=== PATIENT | female | born 1985 | race Asian ===

== ENCOUNTER 2016-12-19 08:28 | Outpatient (CLI) | payer OTHER, MEDICAID | END 2016-12-19 08:29 | disposition home or self-care (01) | DX: Z13.9 Encounter for screening, unspecified (principal); Z86.2 Personal history of diseases of the blood and blood-forming organs and certain disorders involving the immune mechanism ==

== ENCOUNTER 2017-04-02 20:41 | Emergency (ER) | payer OTHER, MEDICAID ==
--- NOTE | 2017-04-02 20:52 | ED Physician Documentation ---
PD HPI URI - Stated complaint Stated Complaint: FVR/LUMP IN THROAT - Chief complaint Chief Complaint: Heent - History obtained from History obtained from: Patient - History of Present Illness Timing - onset: How many days ago (4) Timing duration: Days (4) Timing details: Gradual onset, Still present Associated symptoms: Fever, Sore throat (has had right buccal mucosa focal sore for a week, and is tapering size. She is having 4 days of malaise, fevers, and left side neck swelling. No trouble swallowing nor breathing.). No: Sinus pain , Dry cough Contributing factors: No: Sick contact, Travel, Immunocompromised Similar symptoms before: Has not had sx before Recently seen: Clinic, Not recently seen (in clinic yesterday and was scheduled for U/S of the neck, with the test being now scheduled for next week. Likely was to eval for abscess.) Review of Systems Constitutional: denies: Fever, Chills Ears: denies: Ear pain Nose: denies: Rhinorrhea / runny nose, Congestion Throat: reports: Oral lesions / sores (right buccal mucusa focal sore for a week.), Sore throat (for 1-2 days) GI: denies: Nausea, Vomiting, Diarrhea : denies: Dysuria, Frequency, Discharge Skin: denies: Rash, Lesions PD PAST MEDICAL HISTORY - Past Medical History Past Medical History: Yes Cardiovascular: None Respiratory: None Endocrine/Autoimmune: None GI: Hemorrhoids : None HEENT: None Psych: None Musculoskeletal: None Derm: None - Past Surgical History Past Surgical History: Yes /[employer]: Tubal ligation - Present Medications Home Medications: Ambulatory Orders Medication Instructions Recorded Confirmed Cephalexin [Keflex] 500 mg PO QID #24 capsule 04/02/17 Dexamethasone [Decadron] 4 mg PO DAILY #5 tablet 04/02/17 - Allergies Allergies/Adverse Reactions: Allergies Allergy/AdvReac Type Severity Reaction Status Date / Time No Known Drug Allergies Allergy Verified 04/02/17 20:48 - Social History Does the pt smoke?: No Smoking Status: Never smoker Does the pt drink ETOH?: No Does the pt have substance abuse?: No - Immunizations Immunizations are current?: Yes - POLST Patient has POLST: No PD ED PE NORMAL - Vitals Vital signs reviewed: Yes - General General: Alert and oriented X 3, Well developed/nourished - HEENT HEENT: Atraumatic, Ears normal, Moist mucous membranes. No: Pharynx benign ( teeth and gums are not tender without swelling. right buccal mucosa laterally with rounded 1/2 cm superficial ulcerative lesion c/w canker sore. ) - Neck Neck: Supple, no meningeal sign, Other (neck with left sided anterior small adenopathy from below ear down to calvicle in scalene line. Bedside U/S showing lymph nodes without apparent abscesses. ) - Cardiac Cardiac: RRR (tachycardic), No murmur - Respiratory Respiratory: Clear bilaterally - Abdomen Abdomen: Soft, Non tender - Back Back: No CVA TTP - Derm Derm: Normal color, Warm and dry, No rash - Extremities Extremities: No deformity, No tenderness to palpate, Normal ROM s pain - Neuro Neuro: Alert and oriented X 3, No motor deficit, Normal speech Results - Vitals Vitals: Vital Signs - 24 hr 04/02/17 04/02/17 20:46 22:00 Temperature 38.1 C H Heart Rate 114 H 99 Respiratory 16 16 Rate Blood Pressure 124/74 110/68 O2 Saturation 100 100 Oxygen O2 Source Room air - Labs Labs: Laboratory Tests 04/02/17 21:19 Group A Strep Rapid Negative Departure - Departure Disposition: 01 Home, Self Care Clinical Impression: Acute cervical adenitis Condition: Stable Record reviewed to determine appropriate education?: Yes Instructions: ED Cervical Adenitis Abx Tx Follow-Up: Pat Bishop, [facility] [Primary Care Provider] - Prescriptions: Dexamethasone [Decadron] 4 mg PO DAILY #5 tablet Cephalexin [Keflex] 500 mg PO QID #24 capsule Comments: Drink lots of fluids. Tylenol or Ibuprofen for fevers. I think this is more bacterial infection and so treat it with Keflex as directed. For the swelling of the lymph nodes, can also use Decadron steroid low dose daily for a few days. Recheck if not improved over the next few days. Discharge Date/Time: 04/02/17 22:04
[2017-04-02] MEDS ORDERED: DEXAMETHASONE 10 MG/ML VIAL PO STA (21:20)
[2017-04-02] MEDS ORDERED: HYDROcod/ACETAM 5/325 MG TABLET PO STA (21:20)
[2017-04-02] MEDS ORDERED: CEPHALEXIN 250 MG CAPSULE PO STA (21:20)
[2017-04-02] MEDS ORDERED: ACETAMINOPHEN 325 MG TABLET PO STA (21:20)
[2017-04-02] MEDS ORDERED: CHERRY SYRUP 10 ML UDC PO ONE (21:27)
[2017-04-02] MEDS ORDERED: CEPHALEXIN 250 MG CAPSULE PO ONE (21:27)
[2017-04-02] MEDS ORDERED: HYDROcod/ACETAM 5/325 MG TABLET ONE (21:27)
[2017-04-02] MEDS ORDERED: DEXAMETHASONE 10 MG/ML VIAL ONE (21:28)
[2017-04-02] MEDS ORDERED: ACETAMINOPHEN 325 MG TABLET PO ONE (21:28)
[2017-04-02 21:48] LABS: RAPID STREP SCREEN REAGENT QC YELLOW (YELLOW)
[2017-04-02 22:04] VITALS: BP 110/68
== END 2017-04-02 22:04 | disposition home or self-care (01) ==
LOC: ED 20:41
DX: L04.0 Acute lymphadenitis of face, head and neck (principal)
CPT/HCPCS: 87070; 87430; 99283; A9270

== ENCOUNTER 2018-02-18 08:00 | Outpatient (CLI) | payer OTHER, MEDICAID ==
[2018-02-18 13:07] LABS: BASOPHILS % (AUTO) 0.6 %; EOSINOPHILS # (AUTO) 0.1 10^3/uL (0.0-0.7); EOSINOPHILS % (AUTO) 2.8 %; HGB - HEMOGLOBIN 11.6 g/dL (12.0-16.0); LYMPHOCYTES # (AUTO) 1.3 10^3/uL (1.5-3.5); LYMPHOCYTES % (AUTO) 29.7 %; MEAN CORPUSCULAR HGB CONC 32.6 g/dL (32.0-36.0); MEAN CORPUSCULAR VOLUME 79.7 fL (81.0-99.0); MEAN PLATELET VOLUME 9.9 fL (7.9-10.8); MONOCYTES # (AUTO) 0.5 10^3/uL (0.0-1.0); MONOCYTES % (AUTO) 12.3 %; NEUTROPHILS # (AUTO) 2.4 10^3/uL (1.5-6.6); NEUTROPHILS % (AUTO) 54.6 %; PLT - PLATELET COUNT 202 10^3/uL (130-450); RED BLOOD COUNT 4.46 10^6/uL (4.20-5.40); WHITE BLOOD COUNT 4.4 x10^3/uL (4.8-10.8)
[2018-02-18 13:22] LABS: ALBUMIN 4.5 g/dL (3.2-5.5); ALBUMIN/GLOBULIN RATIO 1.2 (1.0-2.2); BILIRUBIN,TOTAL 0.5 mg/dL (0.2-1.0); CALCIUM 8.9 mg/dL (8.5-10.3); CREATININE 0.6 mg/dL (0.4-1.0); TOTAL PROTEIN 8.2 g/dL (6.7-8.2)
[2018-02-18 13:54] LABS: THYROID STIMULATING HORMONE 2.34 uIU/mL (0.34-5.60)
[2018-02-18 14:01] LABS: FERRITIN 6.4 ng/mL (11.0-306.8)
[2018-02-18 14:05] LABS: FOLATE 15.06 ng/mL (5.90 - >24.8)
== END 2018-02-18 08:01 | disposition home or self-care (01) ==
LOC: LAB.N 08:00
PROVIDERS: ATTEND Family Medicine
DX: R53.83 Other fatigue (principal); D64.9 Anemia, unspecified; R10.84 Generalized abdominal pain
CPT/HCPCS: 36415; 80053; 82607; 82728; 82746; 83540; 83690; 84443; 84466; 85025; 85044

== ENCOUNTER 2018-09-01 07:58 | Outpatient (CLI) | payer OTHER, MEDICAID ==
[2018-09-01 13:42] LABS: BASOPHILS % (AUTO) 0.5 %; EOSINOPHILS # (AUTO) 0.2 10^3/uL (0.0-0.7); LYMPHOCYTES # (AUTO) 2.2 10^3/uL (1.5-3.5); LYMPHOCYTES % (AUTO) 34.6 %; MEAN CORPUSCULAR HEMOGLOBIN 24.4 pg (27.0-31.0); MEAN CORPUSCULAR HGB CONC 32.4 g/dL (32.0-36.0); MEAN CORPUSCULAR VOLUME 75.3 fL (81.0-99.0); MEAN PLATELET VOLUME 9.4 fL (7.9-10.8); MONOCYTES # (AUTO) 0.4 10^3/uL (0.0-1.0); MONOCYTES % (AUTO) 7.2 %; NEUTROPHILS # (AUTO) 3.4 10^3/uL (1.5-6.6); NEUTROPHILS % (AUTO) 54.7 %; PLT - PLATELET COUNT 244 10^3/uL (130-450); RED CELL DISTRIBUTION WIDTH 15.4 % (12.0-15.0); WHITE BLOOD COUNT 6.2 x10^3/uL (4.8-10.8)
[2018-09-01 14:21] LABS: % IRON SATURATION 9 % (20-50); IRON 39 ug/dL (28-170); TOTAL IRON BINDING CAPACITY 420 ug/dL (250-450); TRANSFERRIN 300 mg/dL (192-382)
== END 2018-09-01 07:59 | disposition home or self-care (01) ==
LOC: LAB.F 07:58
PROVIDERS: ATTEND Family Medicine
DX: D50.9 Iron deficiency anemia, unspecified (principal)
CPT/HCPCS: 36415; 82728; 83540; 84466; 85025

== ENCOUNTER 2020-09-07 09:10 | Outpatient (CLI) | payer BC ==
[2020-09-07 13:49] LABS: BASOPHILS # (AUTO) 0.1 10^3/uL (0.0-0.1); BASOPHILS % (AUTO) 0.9 %; EOSINOPHILS # (AUTO) 0.2 10^3/uL (0.0-0.7); EOSINOPHILS % (AUTO) 3.8 %; HGB - HEMOGLOBIN 9.5 g/dL (12.0-16.0); LYMPHOCYTES # (AUTO) 1.9 10^3/uL (1.5-3.5); LYMPHOCYTES % (AUTO) 32.8 %; MEAN CORPUSCULAR HEMOGLOBIN 20.8 pg (27.0-31.0); MEAN CORPUSCULAR HGB CONC 29.2 g/dL (32.0-36.0); MEAN CORPUSCULAR VOLUME 71.3 fL (81.0-99.0); MEAN PLATELET VOLUME 11.6 fL (7.9-10.8); MONOCYTES # (AUTO) 0.5 10^3/uL (0.0-1.0); MONOCYTES % (AUTO) 7.9 %; NEUTROPHILS # (AUTO) 3.2 10^3/uL (1.5-6.6); NEUTROPHILS % (AUTO) 54.4 %; PLT - PLATELET COUNT 268 10^3/uL (130-450); RED BLOOD COUNT 4.56 10^6/uL (4.20-5.40); RED CELL DISTRIBUTION WIDTH 16.4 % (12.0-15.0); WHITE BLOOD COUNT 5.8 x10^3/uL (4.8-10.8)
[2020-09-07 14:06] LABS: ALBUMIN 4.4 g/dL (3.2-5.5); ALBUMIN/GLOBULIN RATIO 1.2 (1.0-2.2); ALKALINE PHOSPHATASE 41 IU/L (42-121); ALT ALANINE AMINOTRANSFERASE 18 IU/L (10-60); AST ASPARTATE AMINOTRANSFERASE 19 IU/L (10-42); BILIRUBIN,TOTAL 0.5 mg/dL (0.2-1.0); BUN - BLOOD UREA NITROGEN 10 mg/dL (6-20); CALCIUM 8.9 mg/dL (8.5-10.3); CARBON DIOXIDE - CO2 25 mmol/L (21-32); CHLORIDE 104 mmol/L (101-111); CHOL/HDL RATIO 2.5 (<4.4); CHOLESTEROL 109 mg/dL; CREATININE 0.7 mg/dL (0.4-1.0); GLUCOSE 104 mg/dL (70-100); HDL CHOLESTEROL 44 mg/dL; LDL CHOLESTEROL,CALCULATED 51 mg/dL; LDL/HDL RATIO 1.2 (<4.4); SODIUM 136 mmol/L (135-145); TOTAL PROTEIN 8.2 g/dL (6.7-8.2); VLDL CHOLESTEROL 14 mg/dL
== END 2020-09-07 09:11 | disposition home or self-care (01) ==
LOC: LAB.S 09:10
PROVIDERS: ATTEND Nurse Practitioner Family
DX: Z13.9 Encounter for screening, unspecified (principal)
CPT/HCPCS: 36415; 80053; 80061; 83721; 84443; 85025

== ENCOUNTER 2021-12-18 07:46 | Outpatient (CLI) | payer BC ==
[2021-12-18 14:31] LABS: BILIRUBIN,URINE NEGATIVE (NEGATIVE); GLUCOSE, URINE (UA) NEGATIVE (NEGATIVE); KETONES,URINE (UA) NEGATIVE (NEGATIVE); LEUKOCYTE ESTERASE, URINE NEGATIVE (NEGATIVE); NITRITE,URINE NEGATIVE (NEGATIVE); OCCULT BLOOD,URINE NEGATIVE (NEGATIVE); PROTEIN,URINE NEGATIVE (NEGATIVE); UROBILINOGEN,URINE 0.2 (NORMAL) E.U./dL (NORMAL)
[2021-12-18 14:34] LABS: BASOPHILS # (AUTO) 0.1 10^3/uL (0.0-0.1); BASOPHILS % (AUTO) 1.2 %; EOSINOPHILS # (AUTO) 0.2 10^3/uL (0.0-0.7); EOSINOPHILS % (AUTO) 3.8 %; HGB - HEMOGLOBIN 8.9 g/dL (12.0-16.0); LYMPHOCYTES # (AUTO) 1.9 10^3/uL (1.5-3.5); LYMPHOCYTES % (AUTO) 31.8 %; MEAN CORPUSCULAR HEMOGLOBIN 19.2 pg (27.0-31.0); MEAN CORPUSCULAR HGB CONC 28.7 g/dL (32.0-36.0); MONOCYTES # (AUTO) 0.4 10^3/uL (0.0-1.0); MONOCYTES % (AUTO) 7.3 %; NEUTROPHILS # (AUTO) 3.4 10^3/uL (1.5-6.6); NEUTROPHILS % (AUTO) 55.6 %; PLT - PLATELET COUNT 296 10^3/uL (130-450); RED BLOOD COUNT 4.63 10^6/uL (4.20-5.40); RED CELL DISTRIBUTION WIDTH 16.8 % (12.0-15.0)
[2021-12-18 14:35] LABS: CLARITY,URINE CLOUDY (CLEAR)
[2021-12-18 14:36] LABS: % IRON SATURATION 4 % (20-50); ALBUMIN 4.5 g/dL (3.2-5.5); ALBUMIN/GLOBULIN RATIO 1.1 (1.0-2.2); ALKALINE PHOSPHATASE 44 IU/L (42-121); ALT ALANINE AMINOTRANSFERASE 20 IU/L (10-60); AST ASPARTATE AMINOTRANSFERASE 20 IU/L (10-42); BILIRUBIN,TOTAL 0.2 mg/dL (0.2-1.0); BUN - BLOOD UREA NITROGEN 12 mg/dL (6-20); CALCIUM 9.2 mg/dL (8.5-10.3); CARBON DIOXIDE - CO2 25 mmol/L (21-32); CHLORIDE 102 mmol/L (101-111); CHOL/HDL RATIO 2.9 (<4.4); CHOLESTEROL 123 mg/dL; CREATININE 0.6 mg/dL (0.4-1.0); GFR - MDRD 113 (>89); GLUCOSE 109 mg/dL (70-100); HDL CHOLESTEROL 43 mg/dL; IRON 18 ug/dL (28-170); LDL CHOLESTEROL,CALCULATED 63 mg/dL; LDL/HDL RATIO 1.5 (<4.4); POTASSIUM 3.7 mmol/L (3.5-5.0); SODIUM 137 mmol/L (135-145); TOTAL IRON BINDING CAPACITY 500 ug/dL (250-450); TOTAL PROTEIN 8.5 g/dL (6.7-8.2); TRANSFERRIN 357 mg/dL (192-382); TRIGLYCERIDES 83 mg/dL; VLDL CHOLESTEROL 17 mg/dL
[2021-12-18 14:45] LABS: BACTERIA,URINE None Seen /HPF (None Seen); MUCUS,URINE Moderate Strands; RBC,URINE None Seen /HPF (0-5); SQUAMOUS EPITHELIAL CELL,UR RARE Squamous (<= Few); WBC,URINE 0-3 /HPF (0-5)
[2021-12-18 14:46] LABS: THYROID STIMULATING HORMONE 3.31 uIU/mL (0.34-5.60)
[2021-12-18 14:53] LABS: FERRITIN 2.7 ng/mL (11.0-306.8); PLATELET ESTIMATE, MANUAL NORMAL (130-450,000) (NORMAL); PLATELET MORPHOLOGY NORMAL APPEARANCE (NORMAL); SLIDE REVIEW? Indicated
[2021-12-18 14:54] LABS: WBC MORPHOLOGY (MULTIPLE) NORMAL APPEARANCE (NORMAL)
[2021-12-18 19:48] LABS: ESTIMATED AVERAGE GLUCOSE 117 mg/dL (70-100); HEMOGLOBIN A1c% 5.7 % (4.27-6.07)
== END 2021-12-18 07:47 | disposition home or self-care (01) ==
LOC: LAB.S 07:46
PROVIDERS: ATTEND Nurse Practitioner
DX: D64.9 Anemia, unspecified (principal); R53.83 Other fatigue; Z13.220 Encounter for screening for lipoid disorders; Z13.1 Encounter for screening for diabetes mellitus
CPT/HCPCS: 36415; 80053; 80061; 81001; 82607; 82728; 83036; 83540; 83721; 84443; 84466; 85025; 87086

== ENCOUNTER 2021-12-22 11:51 | Outpatient (CLI) | payer BC ==
--- NOTE | 2021-12-22 12:47 | XRAY Report ---
PROCEDURE: Knee 4 View LT INDICATIONS: KNEE PAIN LEFT TECHNIQUE: 4 views of the left knee(s) were acquired. COMPARISON: None. FINDINGS: Bones: No fractures or dislocations. No suspicious bony lesions. Soft tissues: No joint effusion. No suspicious soft tissue calcifications. IMPRESSION: Unremarkable radiographic examination of left knee. Reviewed by: Jose Roberto Carrillo MD on 12/22/2021 12:46 PM PST Approved by: Jose Roberto Carrillo MD on 12/22/2021 12:46 PM [facility] Station ID: [id number]
== END 2021-12-22 11:52 | disposition home or self-care (01) ==
LOC: DI.S 11:51
PROVIDERS: ATTEND Nurse Practitioner
DX: M25.562 Pain in left knee (principal)